=== PATIENT | male | born 1970 | race Two or more races ===

== ENCOUNTER 2020-10-26 11:34 | Emergency (ER) | payer MEDICAID, OTHER ==
[~2020-10-26] VITALS: Ht 180.3 cm; Wt 86.2 kg
[2020-10-26 11:35] VITALS: BP 142/96
== END 2020-10-26 13:37 | disposition home or self-care (01) ==
LOC: ER 11:34
DX: G51.0 Bell's palsy (principal)
CPT/HCPCS: 70450